=== PATIENT | female | born 1985 | race Caucasian/White ===

== ENCOUNTER 2017-01-31 07:32 | Emergency (ER) | payer OTHER ==
[~2017-01-31] VITALS: Ht 154.9 cm; Wt 68.7 kg
[~2017-01-31 07:32] MED LIST: FIORICET WI1 CAPSULE PO; FLEXERIL10 MG PO; LORTAB 5-325 M1 EACH PO; MIRENA52 MG; MOBIC15 MG PO; NAPROSYN500 MG PO; PREDNISONE50 MG PO; PROMETHAZINE HC25 M1 PO; SUMATRIPTAN SU100 MG PO; ULTRAM50 MG PO; VENTOLIN HFA18 GM IH; VYVANSE30 MG; VYVANSE70 MG PO
[2017-01-31] MEDS ORDERED: PEN-VEE K,VEET500 MG PO (08:05)
[2017-01-31] MEDS ORDERED: INDOCIN50 MG PO (08:05)
[2017-01-31 08:16] VITALS: BP 151/89
[2017-01-31] MEDS ORDERED: PERCOCET 5/31 TABLET PO (11:01)
[2017-01-31] MEDS ORDERED: DIFLUCAN150 MG PO (11:01)
== END 2017-01-31 08:19 | disposition home or self-care (01) ==
LOC: EME 07:32
PROC: 3E0T3BZ Introduction of Anesthetic Agent into Peripheral Nerves and Plexi, Percutaneous Approach (ICD-10-PCS; principal; 2017-01-31)
DX: K08.89 Other specified disorders of teeth and supporting structures (principal); K02.9 Dental caries, unspecified; F17.200 Nicotine dependence, unspecified, uncomplicated
CPT/HCPCS: 99281; 99284; S0020

== ENCOUNTER 2017-01-31 09:58 | Emergency (ER) | payer OTHER ==
[~2017-01-31] VITALS: Ht 154.9 cm; Wt 68.4 kg
[~2017-01-31 09:58] MED LIST changes: +INDOCIN50 MG PO; +PEN-VEE K,VEET500 MG PO
[2017-01-31] MEDS ORDERED: DIFLUCAN150 MG PO (11:01)
[2017-01-31] MEDS ORDERED: PERCOCET 5/31 TABLET PO (11:01)
[2017-01-31 11:19] VITALS: BP 133/79
== END 2017-01-31 11:19 | disposition home or self-care (01) ==
LOC: EME 09:58
PROC: 3E0T3BZ Introduction of Anesthetic Agent into Peripheral Nerves and Plexi, Percutaneous Approach (ICD-10-PCS; principal; 2017-01-31)
DX: K08.89 Other specified disorders of teeth and supporting structures (principal); K02.9 Dental caries, unspecified; R42 Dizziness and giddiness; F17.200 Nicotine dependence, unspecified, uncomplicated
CPT/HCPCS: 99281; 99283; S0020

== ENCOUNTER 2017-03-16 10:18 | Emergency (ER) | payer OTHER ==
[~2017-03-16] VITALS: Ht 154.9 cm; Wt 67.1 kg
[~2017-03-16 10:18] MED LIST changes: +DIFLUCAN150 MG PO; +PERCOCET 5/31 TABLET PO
[2017-03-16 11:15] LABS: HEMATOCRIT 40.4 % (36.0-46.0); MCH 30.5 PG (29.0-34.0); MCHC 34.7 G/DL (30.0-36.0); MEAN PLAT.VOLUME 10.1 uM^3 (9.5-12.4); PLATELET COUNT 342 K/uL (156-360); RBC DIS.WIDTH-CV 11.9 % (11.8-14.6); RBC DIS.WIDTH-SD 38.5 % (39-53); RED BLOOD COUNT 4.59 M/uL (3.80-5.20); WHITE BLOOD COUNT 7.3 K/uL (4.1-10.2)
[2017-03-16] MEDS ORDERED: VYVANSE70 MG PO (11:16)
[2017-03-16 11:21] LABS: ADD MIUA? YES; BILIRUBIN NEGATIVE; BLOOD SMALL; COLOR STRAW ((YELLOW)); GLUCOSE (STRIP) NEGATIVE; KETONES 20; LEUKOCYTES NEGATIVE; NITRITE NEGATIVE; PROTEIN (STRIP) NEGATIVE; SPECIFIC GRAVITY 1.011 (1.000-1.030); UROBILINOGEN 0.2 MG/DL (0.2-1.0)
[2017-03-16 11:22] LABS: CHLORIDE 101 mEq/L (99-109); POTASSIUM 3.7 mEq/L (3.7-5.4); SODIUM 138 mEq/L (136-147)
[2017-03-16 11:25] LABS: GLUCOSE 89 mg/dL (70-99)
[2017-03-16 11:26] LABS: ANION GAP 12 MEQ/L (2-14)
[2017-03-16 11:27] LABS: TOTAL BILIRUBIN 0.4 mg/dL (0.0-1.0)
[2017-03-16 11:28] LABS: ALKALINE PHOSPHATASE 63 IU/L (3-129); GFR ESTIMATE (CALCULATED) > 59 mL/min/
[2017-03-16 11:29] LABS: BACTERIA RARE /HPF; EPITHELIAL CELLS 2+ /HPF; MUCUS NONE SEEN /LPF; RED BLOOD CELLS 0-5 /HPF (0-5); UCUL ADDED? NO; WHITE BLOOD CELLS 0-5 /HPF (0-5)
[2017-03-16 11:29] LABS: UREA NITROGEN (BUN) 11 mg/dL (9-23)
[2017-03-16 11:31] LABS: D-DIMER ELISA 0.28 mg/L FEU (< 0.57)
[2017-03-16 11:32] LABS: LIPASE 18 U/L (1.0-51.0)
[2017-03-16 11:34] LABS: TROP-I INTERPRETATION NEGATIVE; TROPONIN-I < 0.01 ng/mL (0.0-0.30)
[2017-03-16 11:40] LABS: QUANTITATIVE HCG < 4.0 MIU/ML
[2017-03-16] MEDS ORDERED: ZOFRAN ODT4 MG PO (11:45)
[2017-03-16 12:15] VITALS: BP 116/73
== END 2017-03-16 12:16 | disposition home or self-care (01) ==
LOC: EME 10:18
PROVIDERS: Nurse Practitioner Family
DX: K59.00 Constipation, unspecified (principal); R10.13 Epigastric pain; Z88.6 Allergy status to analgesic agent; F17.200 Nicotine dependence, unspecified, uncomplicated
CPT/HCPCS: 71020; 74000; 80053; 81003; 83690; 84484; 84702; 85027; 85379; 93005; 99281; 99284

== ENCOUNTER 2017-10-28 21:29 | Emergency (ER) | payer OTHER ==
[~2017-10-28] VITALS: Ht 154.9 cm; Wt 68.1 kg
[~2017-10-28 21:29] MED LIST changes: +ZOFRAN ODT4 MG PO
[2017-10-28 21:48] LABS: APPEARANCE CLOUDY ((CLEAR)); BILIRUBIN NEGATIVE; BLOOD SMALL; COLOR YELLOW ((YELLOW)); GLUCOSE (STRIP) NEGATIVE; KETONES NEGATIVE; LEUKOCYTES LARGE; NITRITE NEGATIVE; PROTEIN (STRIP) 100; SPECIFIC GRAVITY 1.017 (1.000-1.030); UROBILINOGEN 0.2 MG/DL (0.2-1.0)
[2017-10-28 22:00] LABS: BACTERIA 1+ /HPF; EPITHELIAL CELLS RARE /HPF; MUCUS NONE SEEN /LPF; UCUL ADDED? YES; WHITE BLOOD CELLS TNTC /HPF (0-5)
[2017-10-28] MEDS ORDERED: PYRIDIUM200 MG PO (22:26)
[2017-10-28] MEDS ORDERED: MACROBID100 MG PO (22:26)
[2017-10-28 22:54] VITALS: BP 114/73
== END 2017-10-28 22:51 | disposition home or self-care (01) ==
LOC: EME 21:29
DX: N39.0 Urinary tract infection, site not specified (principal); B96.20 Unspecified Escherichia coli [E. coli] as the cause of diseases classified elsewhere; J45.909 Unspecified asthma, uncomplicated; F17.200 Nicotine dependence, unspecified, uncomplicated; Z16.11 Resistance to penicillins; Z90.49 Acquired absence of other specified parts of digestive tract; Z88.6 Allergy status to analgesic agent; Z88.5 Allergy status to narcotic agent
CPT/HCPCS: 81003; 87077; 87086; 87186; 99281; 99283